=== PATIENT | male | born 1985 | race Caucasian/White ===

== ENCOUNTER 2020-05-22 10:25 | Emergency (ER) | payer MEDICAID ==
[~2020-05-22] VITALS: Ht 172.7 cm; Wt 91.9 kg
[2020-05-22 10:53] VITALS: BP 128/98
[2020-05-22] MEDS ORDERED: FLUCONAZOLE 100 MG TABLET PO ONE (13:30)
[2020-05-22] MEDS ORDERED: FLUCONAZOLE 100 MG TABLET ONE (13:42)
== END 2020-05-22 14:00 | disposition home or self-care (01) ==
LOC: ED 11:11
DX: B35.3 Tinea pedis (principal); M79.671 Pain in right foot; M79.89 Other specified soft tissue disorders
CPT/HCPCS: 99283